=== PATIENT | male | born 1970 | race Caucasian/White ===

== ENCOUNTER 2022-04-12 13:16 | Emergency (ER) | payer MEDICARE, MEDICAID ==
[~2022-04-12] VITALS: Ht 160 cm; Wt 75.0 kg
[~2022-04-12 13:16] MED LIST: ARIP20TA2; BENZ2TAB7; ESCI-7; TRAZ150T78
[2022-04-12 13:20] VITALS: BP 99/65
[2022-04-12] MEDS ORDERED: CIPR5DRO RIGHTEYE (16:16)
[2022-04-12] MEDS ORDERED: ACET-2708 MT (16:18)
== END 2022-04-12 17:35 | disposition home or self-care (01) ==
LOC: ER 13:16
DX: S05.01XA Injury of conjunctiva and corneal abrasion without foreign body, right eye, initial encounter (principal); Z98.890 Other specified postprocedural states; Z86.59 Personal history of other mental and behavioral disorders; W50.4XXA Accidental scratch by another person, initial encounter; Y93.89 Activity, other specified; Y92.89 Other specified places as the place of occurrence of the external cause; Y99.8 Other external cause status
CPT/HCPCS: 99283